=== PATIENT | male | born 1980 | race Caucasian/White ===

== ENCOUNTER → 2021-03-11 | Outpatient (CLI) | payer OTHER ==
[~2021-03-11] MED LIST: ESCITALOPRAM OX10 MG PO; HYDR-2765 PO; LORA0.5T96 PO; LOSA-73 PO
--- NOTE | 2021-03-11 12:47 | PDOC1 ---
INITIAL PAIN CONSULT DATE OF SERVICE: DOS: DATE: 03/11/21 TIME: 12:39 CHIEF COMPLAINT: Chief Complaint: Low back and bilateral lower extremity pain HISTORY OF PRESENT ILLNESS: 40-year-old male presents history of pain low back bilateral lower extremities for about 5 years not result of any specific injury or accident that he is aware but increasing with time and radiating posterior gluteus across the low back bilaterally right essentially equal to left and into the thighs posteriorly as well patient reports is worse with walking standing changing positions better with sitting or laying down but does awaken from sleep least once a night patient reports is not effective bowel bladder control or his ability to walk. Patient reports is a constant pain described as aching and shooting and stabbing the low back and bilateral lower extremities intermittent intensity worse with activity especially standing walking changes during the day with activity tingling across the back and the legs radiating the posterior aspect of the thighs as well as an aching in the back itself. Patient rates his disability rating 0-10 10 being the worst as a 6 with family home responsibilities and recreation and sexual behavior 8 with occupation 3 with social activity and self-care and/support activities. Patient have an MRI scan lumbar spine showing L4-5 with mild disc bulge and mild foraminal narrowing L5-S1 shows a disc bulge with a right protrusion extending from paracentral to foraminal with associated annular fissure measuring 0.3 cm in height with a protrusion type herniation on the right at L5-S1. Patient reports no loss of motor function lower extremities but easy fatigability of both legs with activity especially with working. Patient reports he been off work the last 2weeks the pain is not since gotten significantly improved. Patient has been having chiropractic treatments which are helpful also taking hydrocodone which has been helpful as well but not long- lasting on these modalities. PAST MEDICAL HISTORY: PMH: Hypertension, arthritis, anxiety, gastroesophageal reflux PREVIOUS SURGERIES: Past Surgical Hx: None FAMILY HISTORY: Family Hx: Arthritis, low back issues in patient's father SOCIAL HISTORY: Social Hx: Patient drinks about a sixpack of beer every 2 weeks chews tobacco does not smoke has been for 5 years does not use any illegal illicit or recreational drugs is lives with his spouse has 1 child living at home lives locally in [place] [employer] works as a [employer] REVIEW OF SYSTEMS: ROS: Positive for those items mentioned in history of present illness, all systems are reviewed, otherwise negative ,and are complete full and well-documented on patient's chart. PHYSICAL EXAM: VS: Blood pressure is 168/1 9 pulse 77 respirations 16 temperature 98.4 F height 5 feet 10 inches weight is 236 pounds PE: PHYSICAL EXAMINATION: GENERAL: The patient is awake, alert, oriented, appropriate, very pleasant demeanor HEENT: Shows normocephalic, atraumatic. Extraocular movements are intact and symmetrical. Oral cavity: Mucous membranes moist and pink. Dentition is intact. NECK: Shows anterior throat supple without palpable lymphadenopathy noted. Swallow reflex symmetrical. CHEST: Shows normal on inspection. Breath sounds are clear bilaterally, distant but no rales rhonchi or wheezes auscultated. HEART: Shows S1, S2 clear. No murmurs auscultated. ABDOMEN: Soft, nontender, nondistended, obese. No palpable organomegaly is noted. No rebound or guarding demonstrated. BACK: Shows spine grossly in the midline. Normal-appearing cervical lordotic curvature. There is slightly increased thoracic kyphosis, some minor flattening of the lumbar lordotic curvature. Lumbar paraspinous muscles show symmetrical on inspection, on palpation shows some moderate tenderness diffusely throughout the upper, middle and lower distribution of the paraspinous muscles bilaterally and also into the lower thoracic paraspinous musculature, firm and tender, but without specific trigger points, without radiation of pain. The patient has good rotational motion of the lumbar spine, both laterally as well as extension and flexion without significant difficulty. No tenderness over the spinous processes, sacrum or sacroiliac regions. EXTREMITIES: Lower extremities show deep tendon reflexes 2+ in the patellar and tendo calcaneus tendons. Motor exam is 5 on a scale of 5 with right dorsiflexion, extension, quadriceps and hamstring flexion and 5/5 on the left. Peripheral pulses are 1+ posterior tibial. No peripheral edema is noted bilaterally. Lower extremities are warm and dry to touch, equal in color and appearance. Straight leg raise noted to be negative bilaterally. Gaenslen's and Michael's maneuvers are negative bilaterally as well. The patient is able to stand, stand on his toes without significant difficulty or loss of balance walks with a normal-appearing gait is not appear to favor the right or left lower extremity significantly with ambulation. SKIN: Shows warm and dry, good turgor. No edema. No sores, rashes or bruising throughout. IMPRESSION: Impression: 40-year-old male with long history approximately 6 years low back and bilateral lower extremity pain MRI scan lumbar spine as noted Arthritis Hypertension Plan: Options were discussed with the patient occluding conservative medical management physical therapies interventional techniques. We discussed procedures today using descriptions as well as anatomical models to describe the procedures. Patient would like to consider all of his options and discuss this with his spouse later and will decide whether he would like to proceed with interventional techniques. Patient will follow up if desires interventional techniques and will plan on lumbar epidural steroid injection at that time. ALVA EASTMAN MD March 11, 2021 12:47
== END | disposition home or self-care (01) ==
LOC: PNCL 11:19
PROVIDERS: ATTEND Anesthesiology
DX: M54.5 Low back pain (principal); M79.605 Pain in left leg; M79.604 Pain in right leg; I10 Essential (primary) hypertension; M19.90 Unspecified osteoarthritis, unspecified site; F41.9 Anxiety disorder, unspecified; K21.9 Gastro-esophageal reflux disease without esophagitis; Z79.899 Other long term (current) drug therapy; Z98.890 Other specified postprocedural states
CPT/HCPCS: 99214; G0463